=== PATIENT | male | born 1985 | race Caucasian/White ===

== ENCOUNTER 2018-12-09 20:39 | Emergency (ER) | payer SELFPAY ==
[~2018-12-09] VITALS: Ht 172.7 cm; Wt 77.3 kg
[2018-12-09 21:04] VITALS: BP 136/82; Ht 172.7 cm; Wt 77.3 kg
[2018-12-09] MEDS ORDERED: BACLOFEN20 M1 PO (21:57)
[2018-12-09] MEDS ORDERED: VOLTAREN75 MG PO (21:57)
== END 2018-12-09 22:57 | disposition home or self-care (01) ==
LOC: D.ER 20:39
DX: M25.511 Pain in right shoulder (principal)

== ENCOUNTER 2020-06-16 17:23 | Emergency (ER) | payer OTHER ==
[~2020-06-16] VITALS: Ht 172.7 cm; Wt 72.7 kg
[~2020-06-16 17:23] MED LIST: BACLOFEN20 M1 PO; VOLTAREN75 MG PO
[2020-06-16 17:31] VITALS: Ht 172.7 cm; Wt 72.7 kg
[2020-06-16 18:20] LABS: BASOPHILS 0.7 % (0-2); EOSINOPHILS 1.8 % (0-7); HEMATOCRIT 42.9 % (42.0-54.0); HEMOGLOBIN 14.2 g/dL (13.5-17.5); IMMATURE GRANULOCYTES 0.1 % (0-5); MCH 30.1 pg (26.0-34.0); MCHC 33.1 g/dL (31.0-37.0); MCV 91.1 fL (80.0-100.0); MEAN PLATELET VOLUME 10.2 fL (7.4-10.4); MONOCYTES 8.9 % (2-11); NEUTROPHILS 63.5 % (40-80); PLATELET COUNT 263 10x3/uL (130-400); RBC 4.71 10x6/uL (4.20-6.10); RDW 13.4 % (11.5-14.5); WBC 6.8 10x3/uL (4.8-10.8)
[2020-06-16 18:32] LABS: CALC OSMOLALITY 278 mosm/kg (275-300); CALCIUM 8.2 mg/dL (8.5-10.1); CHLORIDE - SERUM 106 mmol/L (98-107); CREATININE - SERUM 1.2 mg/dL (0.6-1.3); GLUCOSE 87 mg/dL (74-106); POTASSIUM - SERUM 3.9 mmol/L (3.5-5.1); SODIUM 140 mmol/L (136-145); UREA NITROGEN 14 mg/dL (7-18); eGFR NON AFRICAN AMERICAN 73 mL/min (90-120)
[2020-06-16 18:33] LABS: APTT 30.1 SECONDS (22.8-39.4); INR 0.99 (0.85-1.17)
[2020-06-16 18:35] LABS: D-DIMER-QUANTITATIVE < 0.27 ug/mLFEU (0.20-0.54)
[2020-06-16 18:47] LABS: ALBUMIN 3.4 g/dL (3.4-5.0); ALKALINE PHOSPHATASE 89 U/L (30-120); ALT (SGPT) 20 U/L (10-68); BILIRUBIN - TOTAL 0.36 mg/dL (0.2-1.3); CKMB 2.9 U/L (0.0-3.6); CREATINE KINASE 179 UL (21-232); MAGNESIUM - SERUM 2.1 mg/dL (1.8-2.4); PROTEIN - SERUM 6.6 g/dL (6.4-8.2); TROPONIN-I < 0.017 ng/mL (0.000-0.060)
[2020-06-16] MEDS ORDERED: OMEPRAZOLE40 MG PO (19:30)
[2020-06-16 19:40] VITALS: BP 127/75
== END 2020-06-16 20:58 | disposition home or self-care (01) ==
LOC: D.ER 17:23
PROVIDERS: Family Medicine
DX: K21.9 Gastro-esophageal reflux disease without esophagitis (principal)